=== PATIENT | male | born 1975 | race Caucasian/White ===

== ENCOUNTER 2016-12-31 15:46 | Outpatient (CLI) ==
--- NOTE | 2016-12-31 16:17 | DI ---
EXAM: PA and lateral views of the chest HISTORY: Cough. COMPARISON: None FINDINGS: The cardiomediastinal silhouette is normal. There is no pneumothorax or pleural effusion . There is no consolidation, nodule or mass. The osseous structures are unremarkable. IMPRESSION: No acute cardiopulmonary process
== END 2016-12-31 15:47 | disposition home or self-care (01) ==
LOC: RAD 15:46
PROVIDERS: ATTEND Family Medicine
DX: R05 Cough (principal)